=== PATIENT | male | born 1950 | race Caucasian/White ===

== ENCOUNTER 2024-05-02 11:11 | Emergency (ER) | payer OTHER ==
[~2024-05-02] VITALS: Ht 172.7 cm; Wt 80.3 kg
[2024-05-02] MEDS ORDERED: DIATR MEGLU/DIATRIZOATE SODIUM 30 ML BOTTLE (GASTROGRAPHIN) ONE (11:41)
[2024-05-02] MEDS: DIATR MEGLU/DIATRIZOATE SODIUM 30 ML BOTTLE (GASTROGRAPHIN) PO ONE (13:00)
[2024-05-02 15:08] VITALS: BP 121/71; TEMP 98; O2SAT 96
== END 2024-05-02 15:08 ==
LOC: ER 11:31
DX: K94.29 Other complications of gastrostomy (principal); G93.49 Other encephalopathy; Z86.73 Personal history of transient ischemic attack (TIA), and cerebral infarction without residual deficits; Z79.899 Other long term (current) drug therapy; Z91.041 Radiographic dye allergy status
CPT/HCPCS: 99284; 43762; 70450; 74018; Q9963 ×2

== ENCOUNTER 2024-05-04 07:14 | Emergency (ER) | payer OTHER ==
[~2024-05-04] VITALS: Ht 182.9 cm; Wt 80.3 kg
[2024-05-04 08:03] LABS: BASOPHILS # (AUTO) 0.1 K/uL (0.0-0.2); EOSINOPHILS # (AUTO) 0.4 K/uL (0.0-0.7); EOSINOPHILS % (AUTO) 4.5 % (0.0-6.0); HEMATOCRIT 37 % (39-51); LYMPHOCYTES # (AUTO) 2.9 K/uL (0.8-4.8); LYMPHOCYTES % (AUTO) 32.7 % (20.0-44.0); MEAN CORPUSCULAR HEMOGLOBIN 29 PG (26.0-33.0); MEAN CORPUSCULAR HGB CONC 33 g/dl (31.0-36.0); MEAN CORPUSCULAR VOLUME 89 fL (80-96); MONOCYTES # (AUTO) 0.6 K/uL (0.1-1.30); MONOCYTES % (AUTO) 7.2 % (2.0-12.0); NEUTROPHILS # (AUTO) 4.8 K/uL (1.8-8.9); NEUTROPHILS % (AUTO) 54.6 % (43.0-81.0); PLATELET COUNT (AUTO) 188 K/uL (150-450); RED BLOOD CELL COUNT(AUTO) 4.11 MIL/uL (4.5-6.0); RED CELL DISTRIBUTION WIDTH 17.2 % (11.5-15.0); WHITE BLOOD COUNT (AUTO) 8.8 K/uL (4.3-11.0)
[2024-05-04] MEDS ORDERED: ZINC56.713 TP (08:04)
[2024-05-04] MEDS ORDERED: FERR324T GT (08:04)
[2024-05-04] MEDS ORDERED: INSU100I26 SQ (08:04)
[2024-05-04] MEDS ORDERED: ZINC220C6 GT (08:04)
[2024-05-04] MEDS ORDERED: MULT-213 GT (08:04)
[2024-05-04] MEDS ORDERED: DICL100G34 TP (08:04)
[2024-05-04] MEDS ORDERED: POLY17PO4 GT (08:04)
[2024-05-04] MEDS ORDERED: NUT.250L18 GT (08:04)
[2024-05-04] MEDS ORDERED: ASPI-1169 GT (08:04)
[2024-05-04] MEDS ORDERED: CARV25TA2 GT (08:04)
[2024-05-04] MEDS ORDERED: DOCU100C36 GT (08:04)
[2024-05-04] MEDS ORDERED: INSU100I4 SQ (08:04)
[2024-05-04] MEDS ORDERED: COLL30OI TP (08:04)
[2024-05-04] MEDS ORDERED: APIX5TAB GT (08:04)
[2024-05-04] MEDS ORDERED: ROSU20TA32 GT (08:04)
[2024-05-04] MEDS ORDERED: BISA10SU11 RC (08:04)
[2024-05-04] MEDS ORDERED: ACET-637 GT (08:04)
[2024-05-04] MEDS ORDERED: AMLO-212 GT (08:04)
[2024-05-04] MEDS ORDERED: ASCO500T21 GT (08:04)
[2024-05-04] MEDS ORDERED: AMIN30LI27 GT (08:04)
[2024-05-04] MEDS ORDERED: TAMS-12 GT (08:04)
[2024-05-04 08:15] LABS: CALCIUM, SERUM 8.7 mg/dL (8.5-10.1); CARBON DIOXIDE 31 mmol/L (21-32); CHLORIDE 102 mmol/L (98-107); CREATININE 0.9 mg/dL (0.6-1.3); GLUCOSE 241 mg/dL (74-106); POTASSIUM 3.7 mmol/L (3.5-5.1); SODIUM SERUM 140 mmol/L (136-145); UREA NITROGEN, BLOOD 39 mg/dL (7-18)
[2024-05-04 12:27] VITALS: TEMP 97.7
[2024-05-04 12:45] VITALS: BP 124/86; O2SAT 99
== END 2024-05-04 12:54 | disposition short-term general hospital (02) ==
LOC: ER 07:26
DX: Z43.1 Encounter for attention to gastrostomy (principal); G93.49 Other encephalopathy; E11.9 Type 2 diabetes mellitus without complications; E78.5 Hyperlipidemia, unspecified; I11.0 Hypertensive heart disease with heart failure; I50.9 Heart failure, unspecified; I48.91 Unspecified atrial fibrillation; K21.9 Gastro-esophageal reflux disease without esophagitis; N40.0 Benign prostatic hyperplasia without lower urinary tract symptoms; Z79.01 Long term (current) use of anticoagulants; Z86.73 Personal history of transient ischemic attack (TIA), and cerebral infarction without residual deficits; Z87.440 Personal history of urinary (tract) infections; Z88.0 Allergy status to penicillin; Z91.041 Radiographic dye allergy status; Z87.39 Personal history of other diseases of the musculoskeletal system and connective tissue
CPT/HCPCS: 36415; 71045-TC; 74021; 80048-TC; 85025-TC